=== PATIENT | male | born 1970 | race Caucasian/White ===

== ENCOUNTER 2016-02-20 22:03 | Emergency (ER) | payer OTHER ==
[~2016-02-20] VITALS: Ht 172.7 cm; Wt 58.1 kg
[2016-02-20 22:07] VITALS: BP 132/72
[2016-02-20] MEDS ORDERED: IBUPROFEN 400 MG TABLET PO ONE (23:30)
[2016-02-20] MEDS ORDERED: IBUPROFEN 600 MG TABLET PO ONE (23:30)
[2016-02-20] MEDS ORDERED: ACETAMINOPHEN ES 500 MG TABLET ONE (23:34)
[2016-02-21] MEDS ORDERED: ACETAMINOPHEN 325 MG TABLET PO ONE
== END 2016-02-20 23:45 ==
LOC: ER 22:08
DX: S09.90XA Unspecified injury of head, initial encounter (principal); F11.10 Opioid abuse, uncomplicated; W22.8XXA Striking against or struck by other objects, initial encounter; Y93.89 Activity, other specified; Y92.89 Other specified places as the place of occurrence of the external cause; Y99.9 Unspecified external cause status
CPT/HCPCS: 70450; 99284; A4606; Z7610